=== PATIENT | female | born 1980 | race American Indian/Alaskan Native ===

== ENCOUNTER 2016-12-18 23:12 | Emergency (ER) | payer OTHER ==
[2016-12-19] MEDS ORDERED: TORADOL IM ONE (06:18)
[2016-12-19] MEDS ORDERED: PERCOCET 5/325 PO ONE (06:31)
--- NOTE | 2016-12-19 07:44 | Emergency Department Report ---
ED Upper Extremity Inj HPI - General Chief Complaint: Fall Stated Complaint: R SHOULDER PAIN Time Seen by Provider: 12/19/16 06:07 Source: patient Mode of arrival: Ambulatory Limitations: No Limitations - History of Present Illness Initial Comments: 36-year-old female with no significant past medical history saw down 13 steps and landed on right shoulder. Patient complains of 10/10 that is worth with palpation and movement. No alleviating factors reported. Patient denies head injury, headache, or LOC. Patient is right-hand dominant. No other injuries reported - Related Data Home Medications Medication Instructions Recorded Confirmed Last Taken Levothyroxine [Synthroid] 50 mcg PO QAM 12/19/16 12/19/16 Unknown Previous Rx's Medication Instructions Recorded Last Taken Type Docusate Sodium [Colace] 100 mg PO BID PRN #20 capsule 12/19/16 Unknown Rx Ibuprofen [Motrin] 800 mg PO Q8HR PRN #30 tablet 12/19/16 Unknown Rx Oxycodone HCl/Acetaminophen 1 each PO Q6HR PRN #20 tablet 12/19/16 Unknown Rx [Percocet 10/325 mg] Allergies Allergy/AdvReac Type Severity Reaction Status Date / Time No Known Allergies Allergy Unverified 12/18/16 23:46 ED Review of Systems ROS: Stated complaint: R SHOULDER PAIN Other details as noted in HPI Comment: All other systems reviewed and negative Other: Constitutional: No fevers chills Eyes: No eye pain visual changes ENT: No ear pain or throat pain Neck: Right-sided neck pain Respiratory: Denies cough wheezing shortness of breath Cardiovascular: Denies chest pain, palpitations, syncope GI: Denies abdominal pain, nausea, vomiting, diarrhea : Denies dysuria Musculoskeletal: As per HPI Skin: Denies rash, lesions, erythema Neurologic: Denies headache, numbness, weakness Psychiatric: Denies suicidal ideation, hallucinations ED Past Medical Hx - Past Medical History Previous Medical History?: No - Surgical History Past Surgical History?: Yes Additional Surgical History: x1 - Social History Smoking Status: Never Smoker - Medications Home Medications: Home Medications Medication Instructions Recorded Confirmed Last Taken Type Docusate Sodium [Colace] 100 mg PO BID PRN #20 capsule 12/19/16 Unknown Rx Ibuprofen [Motrin] 800 mg PO Q8HR PRN #30 tablet 12/19/16 Unknown Rx Levothyroxine [Synthroid] 50 mcg PO QAM 12/19/16 12/19/16 Unknown History Oxycodone HCl/Acetaminophen 1 each PO Q6HR PRN #20 tablet 12/19/16 Unknown Rx [Percocet 10/325 mg] ED Physical Exam - General Limitations: No Limitations - Other Other exam information: General: No limitations, patient is alert in no acute distress Head exam: Atraumatic, normocephalic Eyes exam: Normal appearance, pupils equal reactive to light, extraocular movements intact ENT: Moist mucous membrane, normal oropharynx Neck exam: Normal inspection, full range of motion, no meningismus, no midline tenderness Respiratory exam: Clear to auscultation bilateral, no wheezes, rales, crackles Cardiovascular: Normal rate and rhythm, normal heart sounds Abdomen: Soft, nondistended, and nontender, with normal bowel sounds, no rebound, or guarding Extremity: Right shoulder tenderness, no deformity, no contusion, and extends up to the right trapezius muscle. Limited movement secondary to pain. 2+ radial pulses. Back: Normal Inspection, full range of motion, no tenderness Neurologic: Alert, oriented x3, cranial nerves intact, no motor or sensory deficit Psychiatric: normal affect, normal mood Skin: Warm, dry, intact ED Course Vital Signs 12/18/16 12/19/16 12/19/16 23:42 02:23 04:31 Temperature 98.4 F 98.8 F Pulse Rate 93 H 83 86 Respiratory 18 18 18 Rate Blood Pressure 130/92 Blood Pressure 126/76 122/70 [Left] O2 Sat by Pulse 100 99 100 Oximetry 12/19/16 06:20 Temperature Pulse Rate 84 Respiratory 18 Rate Blood Pressure Blood Pressure 124/72 [Left] O2 Sat by Pulse 100 Oximetry - Reevaluation(s) Reevaluation #1: 12/19/16 07:41 Patient treated with Toradol and Percocet 2 5 mg tablets 12/19/16 07:41 ED Medical Decision Making - Radiology Data Radiology results: image reviewed (kayleen venegas xray: naf) - Medical Decision Making No signs of acute fracture or dislocation identified on x-ray. Patient treated with Percocet, Toradol, and immobilizer. Orthopedic follow-up will be encouraged Ordered request for verification of current weight. - Differential Diagnosis fracture, contusion, sprain Critical Care Time: No Critical care attestation.: If time is entered above; I have spent that time in minutes in the direct care of this critically ill patient, excluding procedure time. ED Disposition Clinical Impression: Sprain of right shoulder, Fall Disposition: DISCHARGED TO HOME OR SELFCARE Is pt being admited?: No Does the pt Need Aspirin: No Condition: Stable Instructions: Shoulder Sprain (ED) Additional Instructions: Take the medications just prescribed. Although the x-ray today does not show any broken bones is likely that you have injured or sprained the ligaments in her shoulder. It is very important that you wear a sling for comfort and support and follow up with orthopedic doctor provided for further workup and management. Prescriptions: Docusate Sodium [Colace] 100 mg PO BID PRN #20 capsule PRN Reason: Constipation Ibuprofen [Motrin] 800 mg PO Q8HR PRN #30 tablet PRN Reason: Pain Oxycodone HCl/Acetaminophen [Percocet 10/325 mg] 1 each PO Q6HR PRN #20 tablet PRN Reason: Pain , Severe (7-10) Referrals: BHARAT LOWE [Other] - 3-5 Days UCHE PIKE MD [Staff Physician] - 3-5 Days Time of Disposition: 08:05
--- NOTE | 2016-12-19 08:38 | XRay Report ---
RIGHT SHOULDER RADIOGRAPHS INDICATION: Fall, pain. COMPARISON: None similar. FINDINGS: Frontal and Y views of the right shoulder, 3 projections demonstrate normal humeral head contour, well positioned against the glenoid. Normal acromioclavicular joint. Preserved scapular contour. Normal visualized soft tissues, right ribs and lung. CONCLUSION: No acute right shoulder radiographic abnormality, as described. Thank you for the opportunity to participate in this patient's care.
[2016-12-19 09:08] VITALS: BP 133/64
== END 2016-12-19 09:19 | disposition home or self-care (01) ==
LOC: ED 23:12
DX: S43.401A Unspecified sprain of right shoulder joint, initial encounter (principal); W18.30XA Fall on same level, unspecified, initial encounter; Y93.89 Activity, other specified; Y99.8 Other external cause status; Y92.89 Other specified places as the place of occurrence of the external cause
CPT/HCPCS: 29105; 73030; 96372; 99284; J1885